=== PATIENT | male | born 1950 | race Hispanic/Latino ===

== ENCOUNTER 2024-08-08 05:45 | Day surgery (SDC) | payer OTHER ==
[2024-08-08] VITALS (11 sets, daily range): BP systolic 95–114; BP diastolic 55–73; PULSE 60–78; RESP 12–18; TEMP 96.5–97.9
[~2024-08-08] VITALS: Ht 182.9 cm; Wt 79.4 kg
[~2024-08-08 05:45] MED LIST: ATOR40TA71 PO; CHOL100040 PO; DICY20TA3 PO; FISH1CAP20 PO; LISI10TA24 PO; METO-391 PO; SITA1TAB2 PO; VITA-328 PO
[2024-08-08] MEDS: 0.9%NACL 1000ML 1,000 ML IV ONE (06:26)
[2024-08-08] MEDS ORDERED: LIDOCAINE HCL 1% 20 ML VIAL ONE (07:36)
[2024-08-08] MEDS ORDERED: proPOFol 10 MG/ML 20ML VIAL IV ONE (07:36)
== END 2024-08-08 09:10 | disposition home or self-care (01) ==
LOC: ENDO 05:45 → DAH 05:45 → ENDO 09:10
PROVIDERS: ATTEND Internal Medicine Gastroenterology
DX: Z12.11 Encounter for screening for malignant neoplasm of colon (principal); D12.2 Benign neoplasm of ascending colon; D12.3 Benign neoplasm of transverse colon; D12.4 Benign neoplasm of descending colon; K31.89 Other diseases of stomach and duodenum; K57.30 Diverticulosis of large intestine without perforation or abscess without bleeding; D50.9 Iron deficiency anemia, unspecified; R10.12 Left upper quadrant pain; I25.10 Atherosclerotic heart disease of native coronary artery without angina pectoris; E11.9 Type 2 diabetes mellitus without complications; M19.90 Unspecified osteoarthritis, unspecified site; E78.00 Pure hypercholesterolemia, unspecified; I11.9 Hypertensive heart disease without heart failure; M81.0 Age-related osteoporosis without current pathological fracture; Z95.1 Presence of aortocoronary bypass graft; Z95.5 Presence of coronary angioplasty implant and graft; Z98.890 Other specified postprocedural states; Z79.899 Other long term (current) drug therapy
CPT/HCPCS: 45380; 45385; 43239; 82948; J7030 ×2; J2704; A4620; A4215 ×2; A4223; A4222; A4221; A4663; A4606; J3490